=== PATIENT | male | born 2000 | race African-American/Black ===

== ENCOUNTER 2022-11-30 15:20 | Emergency (ER) | payer MEDICAID ==
[~2022-11-30] VITALS: Ht 190.5 cm; Wt 111.0 kg
[2022-11-30] MEDS ORDERED: FENTANYL CITRATE/PF 50MCG/ML 2ML VIAL IV ONE (17:45)
[2022-11-30] MEDS ORDERED: LIDOCAINE HCL/PF 1% 10 MG/ML 5ML VIAL INFIL ONE (18:30)
[2022-11-30] MEDS ORDERED: FENTANYL CITRATE/PF 50MCG/ML 2ML VIAL IV NR (19:00)
[2022-11-30] MEDS ORDERED: LIDOCAINE HCL 1% 10 MG/ML 10ML VIAL IJ NR (19:00)
[2022-11-30 20:20] VITALS: BP 146/85
[2022-11-30] MEDS ORDERED: IBUP-2029 MT (21:13)
[2022-11-30] MEDS ORDERED: T3 PO (21:13)
== END 2022-11-30 21:42 | disposition home or self-care (01) ==
LOC: ER 15:34
DX: S52.92XA Unspecified fracture of left forearm, initial encounter for closed fracture (principal); S52.292A Other fracture of shaft of left ulna, initial encounter for closed fracture; S63.015A Dislocation of distal radioulnar joint of left wrist, initial encounter; M79.632 Pain in left forearm; V47.0XXA Car driver injured in collision with fixed or stationary object in nontraffic accident, initial encounter; Y93.89 Activity, other specified; Y92.410 Unspecified street and highway as the place of occurrence of the external cause
CPT/HCPCS: 29105; 73090; 73110; 96374; 99284; J3010; J3490; Z7610; A4565